=== PATIENT | male | born 1995 | race Caucasian/White ===

== ENCOUNTER 2019-11-11 13:45 | Emergency (ER) | payer SELFPAY ==
[~2019-11-11] VITALS: Ht 195.6 cm; Wt 68.0 kg
[2019-11-11 13:52] VITALS: BP 125/81
== END 2019-11-11 14:49 | disposition home or self-care (01) ==
LOC: ER 13:48
DX: S66.811A Strain of other specified muscles, fascia and tendons at wrist and hand level, right hand, initial encounter (principal); Z60.2 Problems related to living alone; X58.XXXA Exposure to other specified factors, initial encounter; Y93.89 Activity, other specified; Y92.89 Other specified places as the place of occurrence of the external cause; Y99.8 Other external cause status
CPT/HCPCS: 73110

== ENCOUNTER 2021-05-02 13:10 | Emergency (ER) | payer OTHER ==
[~2021-05-02] VITALS: Ht 188 cm; Wt 68.0 kg
[2021-05-02 13:13] VITALS: BP 118/82
[2021-05-02] MEDS ORDERED: CARI350T PO (13:54)
[2021-05-02] MEDS ORDERED: HYDR-4303 PO (13:54)
[2021-05-02] MEDS ORDERED: KETOROLAC TROMETHAMINE INJ 30 MG/ML VIAL ONE (14:15)
[2021-05-02] MEDS: KETOROLAC TROMETHAMINE INJ 30 MG/ML VIAL IV ONE (14:18)
--- NOTE | 2021-05-02 14:33 | NUR ---
IV removed. Catheter intact and site benign. Pressure and 4x4 applied to site. No bleeding noted.Patient discharged to home in stable condition. Written and verbal after care instructions given. Patient verbalizes understanding of instruction.
== END 2021-05-02 14:33 | disposition home or self-care (01) ==
LOC: ER 13:12
DX: M54.40 Lumbago with sciatica, unspecified side (principal); F12.10 Cannabis abuse, uncomplicated
CPT/HCPCS: 96374; 99283; J1885